=== PATIENT | female | born 1960 | race Caucasian/White ===

== ENCOUNTER → 2024-02-16 06:24 | Day surgery (SDC) | payer OTHER, SELFPAY | LOC: GI 06:24 | PROVIDERS: ATTENDING PHYSICIAN Specialist | DX: K63.5 Polyp of colon (principal); D12.8 Benign neoplasm of rectum; Z09 Encounter for follow-up examination after completed treatment for conditions other than malignant neoplasm; Z86.010 Personal history of colon polyps | CPT/HCPCS: 45385; 88305 ==

== ENCOUNTER → 2024-04-02 10:59 | Outpatient (REF) | payer OTHER, SELFPAY | LOC: RAD 10:59 | PROVIDERS: ATTENDING PHYSICIAN Nurse Practitioner | DX: M25.552 Pain in left hip (principal); M54.50 Low back pain, unspecified | CPT/HCPCS: 72100; 73502 ==

== ENCOUNTER 2024-06-19 17:05 | Outpatient (RCR) | payer OTHER, SELFPAY | END 2024-06-19 23:59 | disposition home or self-care (01) | LOC: RPT 17:05 | PROVIDERS: ATTENDING PHYSICIAN Physical Medicine & Rehabilitation Sports Medicine; FAMILY PHYSICIAN Internal Medicine | DX: M25.552 Pain in left hip (principal); M54.16 Radiculopathy, lumbar region; Z73.6 Limitation of activities due to disability | CPT/HCPCS: 97110; 97162; 97530 ==

== ENCOUNTER 2024-07-12 10:55 | Outpatient (RCR) | payer OTHER, SELFPAY | END 2024-07-12 23:59 | disposition home or self-care (01) | LOC: RPT 10:55 | PROVIDERS: ATTENDING PHYSICIAN Physical Medicine & Rehabilitation Sports Medicine; FAMILY PHYSICIAN Internal Medicine | DX: M25.552 Pain in left hip (principal); M54.16 Radiculopathy, lumbar region; Z73.6 Limitation of activities due to disability | CPT/HCPCS: 97110 ==